=== PATIENT | male | born 1960 | race Caucasian/White ===

== ENCOUNTER 2023-11-30 18:04 | Emergency (ER) | payer OTHER, SELFPAY ==
[2023-11-30 18:05] VITALS: BP 229/109; PULSE 80; RESP 16; TEMP 36.6; O2SAT 100; BMI 24.4
[2023-11-30 18:07] VITALS: BP 217/131; PULSE 81; RESP 18; O2SAT 99
[2023-11-30 19:05] VITALS: BP 183/103; PULSE 75; RESP 18; O2SAT 99
--- NOTE | 2023-11-30 19:08 | EDS_ITS ---
HPI History of Present Illness Chief Complaint: Hypertension Informant: patient and spouse/S.O. Onset/Context/Timing Onset: - (Years) Context: Gradual Onset Timing: Continuous Current Severity: Mild Maximum Severity: Mild Narrative Narrative: 63-year-old [facility] male no primary care physician. He has known he has had high blood pressure for years. He tried to stay on medication. He was trying some [id number] stuff called cardiac shield. His pressures been going up higher. He denies any headache or chest pain. He denies any shortness of breath. Prior similar symptoms: Yes Recent Illness/Hospitalization: No PFSH PFSH Medical History no medical history no medical history Home Medications ?Medication ?Instructions ?Recorded ?Last Taken ?Type lisinopril 20 mg tablet 20 mg PO DAILY #30 tabs 11/30/23 Unknown Rx Allergy/AdvReac Type Severity Reaction Status Date / Time No Known Allergies Allergy Verified 11/30/23 18:05 Social History Smoking Status: Current every day smoker tobacco type: smokeless tobacco ROS ROS ED ROS Narrative Denies recent illness. Denies chest pain. Constitutional Constitutional ED: Denies chills or fever(s) Eyes Eyes: Denies blurry vision ENT ENT ED: Denies ear pain Cardiovascular Cardiovascular: Denies chest pain Respiratory/Chest Respiratory/Chest: Denies cough or dyspnea Gastrointestinal Gastrointestinal: Denies abdominal pain Genitourinary Genitourinary ED: Denies dysuria or hematuria Musculoskeletal Musculoskeletal: Denies arthralgias Integumentary Denies abscess Neurologic Neurologic: Denies headache(s) Psychiatric Psychiatric: Denies anxiety Endocrine Endocrinology: Denies cold intolerance Hematologic/Lymphatic Hematologic/Lymphatic: Reports none Allergic/Immunologic Allergic/Immunologic ED: Denies mouth swelling, tongue swelling or urticaria EXAM Physical Exam Narrative Exam Narrative: Well-appearing 63-year-old male. Vital signs showed elevated blood pressure 229/109 repeated 217/131. He denies any complaints. He is in no acute distress. H EENT exam unremarkable. Neck nontender. Lungs clear to auscultation. Heart regular rhythm no murmur. Chest wall and ribs nontender. Abdomen soft nontender. Moving all 4 extremities. Calves are nontender without edema or cords. Neurologically is awake alert. Answering questions following commands. Normal director of curriculum and instruction strength. Normal dorsi plantarflexion. Normal fingertip to nose. Normal speech. NIH 0. Benign normal exam. Const Vital Signs: 11/30/23 18:05 11/30/23 18:07 11/30/23 18:48 Temperature 98 F Temperature Source Temporal Pulse Rate 80 81 Respiratory Rate 16 18 Respiratory Pattern Normal Blood Pressure 229/109 H 217/131 H Blood Pressure Mean 149 159 Pulse Ox 100 99 Oxygen Delivery Method Room Air Room Air 11/30/23 19:05 11/30/23 20:00 Temperature Temperature Source Pulse Rate 75 73 Respiratory Rate 18 16 Respiratory Pattern Blood Pressure 183/103 H 186/91 H Blood Pressure Mean 129 122 Pulse Ox 99 98 Oxygen Delivery Method Room Air Room Air Positive well nourished and well developed; Negative for obese, cachectic, contractures or unkempt General Appearance ED: well developed and NAD; Negative for unkempt, cachectic, contractures, cyanotic, diaphoretic or pallor Nutritional Appearance: Negative for cachectic or obese HEENT Reports moist mucous membranes Negative for trauma or tenderness Eyes PERRL and EOMs intact bilaterally General Eye ED: Negative for pale conjunctiva or scleral icterus Neck no lymphadenopathy, supple and no JVD General: Negative for tenderness Lymph Lymphatic: Negative for other Chest Wall inspection of chest normal and palpation of chest normal Resp normal respiratory effort and clear to auscultation bilaterally Effort and Inspection: Negative for retractions or pain with movement Auscultation: Negative for rales, rhonchi or wheezes Cardio regular rate, regular rhythm, S1 normal heart sound, S2 normal heart sound and no murmurs Palpation: Negative for palpable S3 or palpable S4 Rate: Negative for bradycardia or tachycardic Rhythm: Negative for abnormal rhythm GI normal to inspection, nondistended, normoactive bowel sounds, non-tender, non- distended and no masses Inspection: Negative for abdominal distention Auscultation: normoactive bowel sounds Palpation: soft; Negative for tender or guarding Back/Spine no CVA tenderness General Back: Negative for CVA tenderness Cervical Spine: Negative for cervical spine tenderness Thoracic Spine / Upper Back: Negative for thoracic spinal tenderness Extremity normal to inspection General Extremety ED: Negative for edema or tenderness General Extremity: Negative for edema Neuro oriented x3 and CN's II-XII intact bilaterally Sensorium / Orientation: alert; Negative for orientation impaired, lethargic or stuporous Motor Exam: strength 5/5 throughout Psych mental status grossly normal Appearance: Negative for unkempt Attitude: No agitated Mood & Affect: Negative for depressed, anxious or tearful Skin no rashes or lesions noted and no wounds General Skin Exam: Negative for jaundice or pallor Lesions: No lesion noted Rashes: No rashes noted MDM MDM MDM Narrative Medical decision making narrative: 63-year-old [place] male with acute on chronic hypertension with no prior medications. Screening labs to be obtained. He is get a benign exam. Most likely he will be started on blood pressure medication and discharged home with a prescription. Also need to follow-up with a primary care physician which she does not have at this time. Repeat exam patient is doing well at 8:30 PM. His most recent blood pressure is 186/91. We discussed that he is excepted to be started on blood pressure medication. He will be given lisinopril 20 mg a day first dose here. Prescription sent to his pharmacy. History & Record Review Discussion w/independent historian: Patient Lab Data Attestation: I reviewed the patient's lab results. Lab results narrative: CBC normal. White count of 7. H&H 14 and 43. Platelets 206. Electrolytes showed sodium 135. Gap 7. Normal BUN and creatinine of 16 and 1. Glucose 123. Labs: Laboratory Results - last 24 hr 11/30/23 18:59 WBC 7.8 RBC 5.20 Hgb 14.3 Hct 43.2 MCV 83.1 MCH 27.5 MCHC 33.1 RDW Std Deviation 38.5 RDW Coeff of Kelly 12.7 Plt Count 206 MPV 9.7 Sodium 135 L Potassium 3.5 Chloride 100 Carbon Dioxide 28.0 Anion Gap 7 BUN 16 Creatinine 1.06 Estim Creat Clear Calc 71.33 Est GFR (MDRD) Af Amer 91 Est GFR (MDRD) Non-Af 75 BUN/Creatinine Ratio 15.1 Glucose 123 H Calcium 10.0 Discharge Plan Triage Chief Complaint: Hypertension ED Provider: Faisal Jimenez Dx/Rx/DC Orders Clinical Impression: Hypertension Instructions: ED High Blood Pressure Hypertension Prescriptions: New lisinopril 20 mg tablet 20 mg PO DAILY Qty: 30 1RF Primary Care Provider: Care Physician,No Primary Referrals: Guicho Coker MD [Med Staff - Regulatory Compliance Manager] - As soon as possible Care Physician,No Primary [Primary Care Provider] - Activity Restrictions/Additional Instructions: Start the blood pressure medication lisinopril. I will take it 1 to 2 hours prior to going to bed at night. Check your blood pressures twice a day for the next week to see how they are going. We do not want them too high or too low. If so we may have to adjust the medication dose. Follow-up with local doctor to be reevaluated. Your labs today were good. Your kidney function was good. Print Language: Kyrgyz Disposition Disposition: Home, Self Care
[2023-11-30 19:11] LABS: Hematocrit 43.2 % (40-54); Hemoglobin 14.3 g/dL (13.0-16.5); Mean Corp Hgb Conc 33.1 g/dL (32-36); Mean Corpuscular Hgb 27.5 pg (27.0-32.0); Mean Corpuscular Volume 83.1 fL (80-94); Mean Platelet Vol. 9.7 fl (6.2-12.0); Platelet Count 206 K/mm3 (150-450); RBC Distribution Width CV 12.7 % (11.6-14.6); RBC Distribution Width SD 38.5 fl (35.1-43.9); White Blood Count 7.8 K/mm3 (4.4-11.0)
[2023-11-30 19:39] LABS: Anion Gap 7 (5-15); BUN 16 mg/dL (7-18); BUN/Creat Ratio 15.1 RATIO (10-20); Chloride 100 mmol/L (98-107); Creatinine, Serum 1.06 mg/dL (0.70-1.30); EST Glomerular Filtration Rate 75 mL/min (>60); Est Glom Filt Rate - Afr Amer 91 mL/min (>60); Estimated Creatinine Clearance 71.33 ml/min; Glucose 123 mg/dL (74-106); Potassium 3.5 mmol/L (3.5-5.1); Sodium Level 135 mmol/L (136-145)
[2023-11-30 20:00] VITALS: BP 186/91; PULSE 73; RESP 16; O2SAT 98
[2023-11-30 20:48] VITALS: BP 155/104; PULSE 64; RESP 18; TEMP 36.7; O2SAT 97
[2023-11-30] MEDS: Lisinopril 20 MG Tablet PO (20:48)
== END 2023-11-30 20:51 | disposition home or self-care (01) ==
PROVIDERS: Emergency Provider Emergency Medicine; Visit Provider Emergency Medicine
DX: I10 Essential (primary) hypertension (principal); F17.220 Nicotine dependence, chewing tobacco, uncomplicated
CPT/HCPCS: 80048; 85027; 99284; J7030; A4216

== ENCOUNTER 2023-12-09 12:56 | Emergency (ER) | payer OTHER, SELFPAY ==
[2023-12-09 12:57] VITALS: BP 215/91; PULSE 78; RESP 16; TEMP 36.4; O2SAT 99; BMI 24.3
--- NOTE | 2023-12-09 13:08 | EDS_ITS ---
HPI History of Present Illness Chief Complaint: Hypertension [facility] Medical History no medical history Home Medications ?Medication ?Instructions ?Recorded ?Last Taken ?Type lisinopril 20 mg tablet 20 mg PO DAILY #30 tabs 11/30/23 Unknown Rx amlodipine 10 mg tablet (Norvasc) 10 mg PO DAILY #30 tabs 12/09/23 Unknown Rx lisinopril 40 mg tablet 40 mg PO DAILY #30 tabs 12/09/23 Unknown Rx Allergy/AdvReac Type Severity Reaction Status Date / Time No Known Allergies Allergy Verified 12/09/23 12:58 Social History Smoking Status: Current every day smoker tobacco type: smokeless tobacco EXAM Physical Exam Const Vital Signs: 12/09/23 12:57 12/09/23 13:55 12/09/23 14:45 Temperature 97.5 F L Temperature Source Temporal Pulse Rate 78 69 Respiratory Rate 16 12 Respiratory Effort Normal Non-Labored Respiratory Pattern Normal Blood Pressure 215/91 H 141/87 H Blood Pressure Mean 132 103 Pulse Ox 99 96 Oxygen Delivery Method Room Air MDM MDM MDM Narrative Medical decision making narrative: HISTORY OF PRESENT ILLNESS: 63-year-old male presents with concern for elevated blood pressure. Notes history of elevated blood pressure. Denies headache, chest pain, leg swelling. Notes compliance with lisinopril which he currently takes 20 mg daily. Notes he took an additional 20 mg this morning. Notes his blood pressures have been uptrending despite increasing blood pressure medicine. REVIEW OF SYSTEMS: Pertinent positives: Elevated blood pressure Pertinent negatives: Headache, shortness of breath, leg swelling PHYSICAL EXAM: Nursing triage notes reviewed, Vital signs reviewed Constitutional: please see mdm HENT: MMM Eyes: Pupils equal round and reactive to light, Extraocular muscles intact Neck: No stridor, no JVD, full neck ROM Lungs: Clear to auscultation, No wheezing or rales. No increased work of breathing, no conversational dyspnea, no accessory muscle use, no nasal flaring. No respiratory distress noted Heart: Regular rate and rhythm, No murmurs, No rubs and No gallops, 2+ distal pulses (radial, femoral, posterior tibial) in all extremities Abdomen: Soft, there is no tenderness, rigidity, rebound or guarding, no obvious peritoneal signs, no palpable pulsatile abdominal masses, no auscultated abdominal bruit : No CVAT Extremities: No edema Neuro: Alert and oriented x3, neuro exam at baseline, cranial nerves II through XII are intact. No pain with extraocular muscle movement. There is negative test of skew. 5 of 5 strength in upper and lower extremities in flexion extension. Intact sensation to light touch in upper and lower extremity dermatomes. No truncal or extremity ataxia. No dysdiadochokinesia. Normal gait. 2+ reflexes in upper and lower extremities. No meningeal signs. Negative Babinski. NIH of 0. Skin: No rash or lesions noted MEDICAL DECISION MAKING: Chief Complaint: Elevated blood pressure External records reviewed: [Medications reviewed: Patient currently lisinopril Factors affecting care: n history of hypertension Social determinants of health: none History obtained from others: Spouse Consults: none [facility] Narrative: Patient was initially hypertensive with a blood pressure 215/91, otherwise afebrile and nontoxic-appearing. No focal neurologic deficits. No stigmata of CHF noted on initial exam. I considered the following differential diagnosis: Endorgan damage from elevated blood pressure (ICH, GLORIA, ACS, heart failure) I obtained a broad lab and imaging workup to further elucidate etiology of patient complaint. I treat the patient oral lisinopril and or Norvasc. ALL IMAGES (IF OBTAINED) HAVE BEEN PERSONALLY REVIEWED AND INTERPRETED BY MYSELF. CBC without leukocytosis, severe anemia, no thrombocytopenia. BMP without evidence of significant electrolyte abnormalities, no anion gap, no acute kidney injury. High-sensitivity troponin is negative, no evidence of myocardial ischemia Chest x-ray did show evidence of a possible pulmonary nodule/hiatal hernia. Discussed incidental finding. Discussed outpatient imaging to further elucidate etiology. No signs of heart failure, cardiomegaly. High-sensitivity troponin is negative, no evidence of myocardial ischemia On reevaluation patient's blood pressure improved to 141/87. Will write Norvasc to take daily as well as increase his lisinopril from 20-40 daily. Have him follow-up with his primary care physician. Will give strict return precautions. The patient and/or family, caregivers express understanding. The patient and/or family, caregivers agrees with the plan. Shared decision making: I will have a discussion with the patient and or visitors regarding risk/benefits of further testing or admission. They will be made aware of of the risk/benefits inherent in this decision they will be given the opportunity to voice understanding. Total critical care time today provided was at least 0] minutes. This excludes separately billable procedures. Critical care time (if documented) is secondary to the patient having high probability of clinically significant/life threatening deterioration in the patient's condition which required my urgent intervention. Impression: 1. Elevated blood pressure Dispo: Discharge This note was generated with Ut[employer] dictation software. It may contain incorrect words, spelling, and punctuation that were not noted in review of the chart prior to signing. Lab Data Labs: Laboratory Results - last 24 hr 12/09/23 13:53 WBC 8.1 RBC 4.89 Hgb 13.4 Hct 39.6 L MCV 81.0 MCH 27.4 MCHC 33.8 RDW Std Deviation 38.5 RDW Coeff of Kelly 13.1 Plt Count 196 MPV 10.0 Immature Gran % (Auto) 0.200 Neut % (Auto) 79.3 H Lymph % (Auto) 12.0 L Charlton % (Auto) 6.2 Eos % (Auto) 1.4 Baso % (Auto) 0.9 Absolute Neuts (auto) 6.4 Absolute Lymphs (auto) 0.97 Nucleated RBC % 0 Sodium 140 Potassium 3.5 Chloride 108 H Carbon Dioxide 25.0 Anion Gap 7 BUN 19 H Creatinine 0.79 Estim Creat Clear Calc 95.71 Est GFR (MDRD) Af Amer 127 Est GFR (MDRD) Non-Af 105 BUN/Creatinine Ratio 24.1 H Glucose 102 Calcium 9.6 Troponin I High Sens 6 Radiography Diagnostic Testing: Clinical Impression(s) from Imaging Studies Chest X-Ray 12/09/23 13:10 IMPRESSION: Hyperinflation. 2.5 cm x 3.7 cm well-defined nodule in the left paraspinal region as described. Correlation with CT scan recommended. Electronically Signed: Teddy Voss MD at 14:10 EDT , Discharge Plan Triage Chief Complaint: Hypertension ED Provider: Vishal Thomas Dx/Rx/DC Orders Instructions: ED Hypertension New Begin Treatment Prescriptions: New lisinopril 40 mg tablet 40 mg PO DAILY Qty: 30 0RF amlodipine [Norvasc] 10 mg tablet 10 mg PO DAILY Qty: 30 0RF No Action lisinopril 20 mg tablet 20 mg PO DAILY Qty: 30 1RF Primary Care Provider: Care Physician,No Primary Referrals: Abhijeet Kelley MD [Med Staff - Active Staff] - Activity Restrictions/Additional Instructions: Thank you for trusting us with your care today! Your blood pressure improved after addition of Norvasc. Your labs and images did not show signs of damage to your vital organs including your brain, heart, kidneys. Please begin taking 40 mg lisinopril daily. Please add to this 10 mg of Norvasc daily. Please return to the emergency department if your symptoms change or worsen. Specifically if you develop headache, chest pain, shortness of breath, loss of movement sensation or coordination, if you lose consciousness, she noticed any changes to urinary habits. Please get regular exercise (30 minutes of walking). Please decrease your salt intake. Please follow with your primary care physician for further outpatient evaluation and management. Print Language: Indonesian Disposition Disposition: Home, Self Care
--- NOTE | 2023-12-09 13:10 | RAD_ITS ---
STUDY: X-RAY CHEST REASON FOR EXAM: Male, 63 years old. Elevated blood pressure TECHNIQUE: Single AP portable view of the chest. COMPARISON: None. FINDINGS: Hyperinflation. There is a 2.5 cm x 3.7 cm nodular density seen in the left paraspinal region medially. This may represent hiatal hernia although a pleural-based nodule cannot be excluded. Correlation with a CT scan is recommended. There is no demonstrated pleural abnormality. Normal size heart. Normal mediastinum and naomi. Normal visualized pulmonary arteries. Normal visualized aortic arch and descending thoracic aorta. Normal visualized thoracic spine. Normal visualized ribs, clavicles, and shoulders. There is no demonstrated abnormality of the visualized soft tissue structures of the upper abdomen. RAD/Chest 1 View (Portable) IMPRESSION: Hyperinflation. 2.5 cm x 3.7 cm well-defined nodule in the left paraspinal region as described. Correlation with CT scan recommended. Electronically Signed: Teddy Voss MD at 14:10 EDT ,
--- NOTE | 2023-12-09 13:10 | EKG12_ITS ---
Test Reason : HIGH BP Blood Pressure : / mmHG Vent. Rate : 077 BPM Atrial Rate : 077 BPM P-R Int : 126 ms QRS Dur : 104 ms QT Int : 384 ms P-R-T Axes : 037 022 034 degrees QTc Int : 434 ms Normal sinus rhythm Normal ECG Confirmed by Shekhar Ross ([id number]), television news video editor LEANDRO DUNCAN ([id number]) on 12/10/2023 2:05:34 PM Referred By: Vishal Thomas Confirmed By:Shekhar Ross
--- NOTE | 2023-12-09 13:29 | NURSING ---
NO OLD EKG
[2023-12-09] MEDS: amLODIPine 10 MG Tablet PO (13:47)
[2023-12-09] MEDS: Lisinopril 40 MG Tablet PO (13:47)
[2023-12-09 14:08] LABS: Absolute Lymphocyte Count 0.97 X10^3/uL (0.83-4.51); Absolute Neutrophil Count 6.4 X10^3/uL (2.0-7.7); Basophil# 0.07 X10^3/uL; Basophil% 0.9 % (0-1); Eosinophil# 0.11 X10^3/uL; Eosinophils% 1.4 % (0-5); Hematocrit 39.6 % (40-54); Hemoglobin 13.4 g/dL (13.0-16.5); Lymphocyte # 0.97 X10^3/ul (0.83-4.51); Mean Corp Hgb Conc 33.8 g/dL (32-36); Mean Corpuscular Hgb 27.4 pg (27.0-32.0); Monocyte% 6.2 % (0-10); NRBC Flagged by Analyzer 0 % (0-5); Neutrophil # 6.44 X10^3/uL (2.7-7.7); Neutrophil % 79.3 % (47-70); Platelet Count 196 K/mm3 (150-450); RBC Distribution Width CV 13.1 % (11.6-14.6); RBC Distribution Width SD 38.5 fl (35.1-43.9); Red Blood Count 4.89 M/mm3 (4.6-6.2); White Blood Count 8.1 K/mm3 (4.4-11.0)
[2023-12-09 14:28] LABS: Anion Gap 7 (5-15); BUN 19 mg/dL (7-18); BUN/Creat Ratio 24.1 RATIO (10-20); Calcium,Total 9.6 mg/dL (8.5-10.1); Chloride 108 mmol/L (98-107); Creatinine, Serum 0.79 mg/dL (0.70-1.30); EST Glomerular Filtration Rate 105 mL/min (>60); Est Glom Filt Rate - Afr Amer 127 mL/min (>60); Estimated Creatinine Clearance 95.71 ml/min; Glucose 102 mg/dL (74-106); Potassium 3.5 mmol/L (3.5-5.1); Sodium Level 140 mmol/L (136-145); Troponin-I HS 6 pg/mL (3.0-78.0)
[2023-12-09 14:45] VITALS: BP 141/87; PULSE 69; RESP 12; O2SAT 96
[2023-12-09 15:25] VITALS: BP 148/93; PULSE 81; RESP 19; TEMP 36.9; O2SAT 97
== END 2023-12-09 15:45 | disposition home or self-care (01) ==
PROVIDERS: Emergency Provider Emergency Medicine; Referring Provider Emergency Medicine; Visit Provider Emergency Medicine
DX: I10 Essential (primary) hypertension (principal); F17.220 Nicotine dependence, chewing tobacco, uncomplicated; Z79.899 Other long term (current) drug therapy
CPT/HCPCS: 71045; 80048; 84484; 85025; 93005; 99283; A4216

== ENCOUNTER → 2024-01-08 | Outpatient (CLI) | payer SELFPAY, OTHER ==
--- NOTE | 2024-01-08 08:25 | CT_ITS ---
ACR Level 3 findings have been noted. An addendum which confirms receipt of the report will follow. STUDY: CT CHEST WITHOUT CONTRAST REASON FOR EXAM: Male, 63 years old. Solitary pulmonary nodule RADIATION DOSAGE (If Supplied By Facility): CTDIvol = ( 8.32 ) mGy, DLP = ( 345.20 ) mGycm TECHNIQUE: Transaxial imaging was performed without the administration of intravenous contrast material. Individualized dose optimization techniques were used for this CT. COMPARISON: Chest x-ray dated December 09, 2023. FINDINGS: Partially calcified 6 mm granuloma seen in the posterior lateral aspect of the right middle lobe, see soft tissue windows were clear calcification in the nodule on image 96/147 series 2. No additional nodules are present in either lung. No consolidation or pulmonary edema or pleural effusion is seen. The lungs are otherwise clear. There is hyperinflation of the lungs consistent with chronic obstructive lung disease (COPD). There is no demonstrated pleural abnormality. Normal heart and pericardium. There are calcifications of the coronary arteries. Normal mediastinum. Small calcified right hilar lymph node noted. Normal unenhanced pulmonary arteries. There is atherosclerotic calcification of the aortic arch with tortuosity and elongation of the aortic arch and descending thoracic aorta. There are multi-level degenerative changes of the thoracic spine. Included upper abdomen: There is a 3.56 cm posterior exophytic mass arising from the midpole of the left kidney concerning for malignant neoplasm that should be evaluated with CT of abdomen and pelvis with and without intravenous contrast. The remaining visualized upper abdominal structures are unremarkable. Several small simple cysts are seen throughout the liver with benign features. Small 5.32 cm fat-containing left lower lobe paravertebral diaphragmatic hernia noted CT/Chest without Contrast IMPRESSION: 1. There is a 3.56 cm posterior exophytic mass arising from the midpole of the left kidney concerning for malignant neoplasm that should be evaluated with CT of abdomen and pelvis with and without intravenous contrast. 2. CHEST: Benign partially calcified right middle lobe granuloma. COPD. 3. Risk factors for lung malignancy with COPD and emphysema. Considering Primo in the CT LUNG CANCER annual screening exam. Electronically Signed: Zion Mckeon MD at 10:36 EDT ,
== END | disposition home or self-care (01) ==
LOC: CT 08:17
PROVIDERS: Referring Provider Nurse Practitioner Family; Visit Provider Nurse Practitioner Family
DX: R91.1 Solitary pulmonary nodule (principal); R93.89 Abnormal findings on diagnostic imaging of other specified body structures
CPT/HCPCS: 71250

== ENCOUNTER → 2024-01-29 | Outpatient (CLI) | payer SELFPAY, OTHER ==
--- NOTE | 2024-01-29 16:51 | CT_ITS ---
INDICATION: ABNORMAL CT CHEST LEFT KIDNEY MASS EXAMINATION: CT ABDOMEN AND PELVIS WITH AND WITHOUT CONTRAST - CT Abdomen And Pelvis WO/W Contrast Injection TECHNIQUE: Helically acquired images were obtained of the abdomen and pelvis both before and after IV contrast. A radiation dose optimization technique was used for this scan. IV Contrast dosage and agent: 75 cc Isovue-300 Oral contrast: None. COMPARISON: Chest CT 01/08/2024 FINDINGS: LOWER CHEST: Stable 6 mm calcified granuloma right middle lobe. No acute pulmonary findings. No cardiomegaly or pericardial effusion. LIVER: Scattered hepatic cysts. No concerning focal mass. GALLBLADDER AND BILIARY TREE: No calcified gallstones. No gallbladder distension or wall edema. No intra- or extrahepatic biliary ductal dilation. PANCREAS: No focal cystic or solid mass. SPLEEN: Normal size without focal cystic or solid mass. ADRENAL GLANDS: No nodules. KIDNEYS AND URETERS: 4 cm exophytic lesion lateral cortex left lower pole with 17 Hounsfield unit postcontrast enhancement. No hydronephrosis. PERITONEUM: No ascites or free air. BOWEL: Normal appendix. No stomach or bowel distension. No focal inflammatory change. LYMPH NODES: No enlarged mesenteric or retroperitoneal lymph nodes. VESSELS: Aorta is non-dilated. URINARY BLADDER: Unremarkable. REPRODUCTIVE ORGANS: No pelvic masses. ABDOMINAL WALL: Small fat-containing umbilical hernia. BONES: No acute or aggressive abnormality. CT/CT Abd/Pelvis W/WO Contrast IMPRESSION: Equivocal enhancement of the left lower pole exophytic renal mass. Recommend follow-up multiphasic renal MRI for possible malignancy. Electronically Signed: Adebayo Babin MD at 16:11 EDT ,
[2024-01-29 17:17] LABS: CREATININE FINGERSTICK 1.1 mg/dL (0.70-1.30); EGFR FINGERSTICK > 60.0000 mL/min (>60)
== END | disposition home or self-care (01) ==
LOC: CT 16:50
PROVIDERS: Referring Provider Nurse Practitioner Family; Visit Provider Nurse Practitioner Family
DX: N28.89 Other specified disorders of kidney and ureter (principal)
CPT/HCPCS: 74178; Q9967

== ENCOUNTER → 2024-05-30 | Outpatient (CLI) | payer SELFPAY, OTHER ==
--- NOTE | 2024-05-30 15:54 | MRI_ITS ---
PROCEDURE: MRI of the abdomen without and with intravenous contrast. REASON FOR EXAM: Left renal mass. TECHNIQUE: Multi planer, multisequence MRI images of the abdomen were obtained without and with intravenous contrast. 14 cc Dotarem IV contrast was administered. COMPARISON: CT abdomen/pelvis 01/29/2024 FINDINGS: The included osseous structures of the lumbar spine, lower thorax, and upper pelvis unremarkable. Patchy wall thickening of the stomach may be due to lack of distention versus peristalsis. The included bowel segments show no specific abnormality. No upper abdominal ascites or adenopathy. The included upper bowel segments are unremarkable. Abdominal aorta normal in caliber. There are a few partially included nonenhancing cysts in the liver, measuring up to 1.5 cm. No filling defects in the gallbladder. No abnormal dilation of the biliary tree. Included portions of the spleen, adrenal glands, and pancreas show no specific abnormality. The kidneys are symmetric in size. No discrete cortical lesion of the right kidney. No evidence of obstructive uropathy. There is a partially exophytic mildly T2 hypointense lesion inferior lateral left kidney, measuring 3.8 cm craniocaudad. This does appear to demonstrate some enhancing on postcontrast images, with average central region of interest intensity value on precontrast images of 447, compared to 750 on the postcontrast images. On the delayed CT images, the mass has a central average Hounsfield unit value of 36, compared to 15 on the precontrast images. MRI/MRI Abd WITH and W/O Contrast IMPRESSION: There does appear to be some enhancement of the exophytic 3.8 cm mass of the in ferior lateral left kidney. Renal neoplasm would be a differential diagnostic consideration and biopsy is recommended for defini tive histologic diagnosis. No upper abdominal ascites or adenopathy. There are some scattered nonenhancing small hepatic cysts, measuring up to 1.5 cm. The right kidney and remaining solid organs of the abdomen are unremarkable. T here are Reading Location: [facility]
--- NOTE | 2024-05-30 16:15 | RAD_ITS ---
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 COMPARISON: None. FINDINGS: No evidence of displaced orbit fracture. No radiopaque foreign body. Visualized paranasal sinuses appear clear. RAD/Orbits for Foreign Body IMPRESSION: No radiopaque foreign body in the orbits. Reading Location: BLANK
[2024-05-30 17:24] LABS: CREATININE FINGERSTICK < 1.0 mg/dL (0.70-1.30); EGFR FINGERSTICK > 60.0000 mL/min (>60)
== END | disposition home or self-care (01) ==
PROVIDERS: Referring Provider Urology; Visit Provider Urology
DX: D41.00 Neoplasm of uncertain behavior of unspecified kidney (principal)
CPT/HCPCS: 70030; 74183; A9575

== ENCOUNTER 2024-07-08 11:00 | Observation (INO) | payer SELFPAY, OTHER ==
[2024-07-08] VITALS (13 sets, daily range): BP systolic 85–137; BP diastolic 51–78; PULSE 53–75; RESP 16; TEMP 36.3–37; O2SAT 95–100; BMI 24.0; BMI 24.1
[2024-07-08] MEDS: 0.9% Normal Saline (1000mL) 1,000 ML 15 ML IV (06:47)
--- NOTE | 2024-07-08 07:06 | PRE.ANES_ITS ---
ASA Classification* ASA Classification ASA Classification: 2 Assessment & Plan Anesthesia* Anesthesia Assessment Anesthesia Assessment: Discussed sedation and/or anesthesia options, risks, benefits, and alternatives with patient/parents/legal guardian/POA. Questions invited. The patient/parents/legal guardian/POA seems to understand and agrees to proceed with anesthesia plan. Reviewed the physical assessment, medical history, allergy history and patient home medications list prior to surgery/procedure/anesthetic and documented any changes. Performed airway and anesthesia risk assessments. Anesthesia Type Anesthesia Type: General Anesthesia Focused Assessment* Temperature: 97.6 F Pulse Rate: 61 Blood Pressure: 112/78 Respiratory Rate: 16 Pulse Ox: 100 Airway Assessment Mouth opens: >3 cm Mallampati Score: II Focused Labs Anesthesia Preop lab: CBC WBC 8.1 K/mm3 (4.4-11.0) 12/09/23 13:53 12/09/23 RBC 4.89 M/mm3 (4.6-6.2) 12/09/23 13:53 12/09/23 Hgb 13.4 g/dL (13.0-16.5) 12/09/23 13:53 12/09/23 Hct 39.6 % (40-54) L 12/09/23 13:53 12/09/23 Plt Count 196 K/mm3 (150-450) 12/09/23 13:53 12/09/23 CHEMISTRY Potassium 3.5 mmol/L (3.5-5.1) 12/09/23 13:53 12/09/23 Sodium 140 mmol/L (136-145) 12/09/23 13:53 12/09/23 BUN 19 mg/dL (7-18) H 12/09/23 13:53 12/09/23 Creatinine 0.79 mg/dL (0.70-1.30) 12/09/23 13:53 12/09/23 Glucose 102 mg/dL (74-106) 12/09/23 13:53 12/09/23 COAG Pre-Assessment Diagnosis/Proposed Procedure Planned Operative Procedure(s): LAP ROBOTIC PARTIAL NEPHRECTOMY Anesthesia History 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 When Was Last Pacemaker Check QUESTION #4 FULL TEXT: You/Your Family Experience fever (hyperthermia) with Anesthesia Last Oral Intake Last Oral intake: Last Oral Intake NPO since 20:00 07/08/24 06:28 Meds taken in AM with sips of No 07/08/24 06:28 water? Meds patient instructed to take am of surgery PONV PONV - wood grinder operator: PONV - wood grinder operator Female No 06/24/24 10:54 HX of Motion Sickness No 06/24/24 10:54 HX of N/V After Surgery No 06/24/24 10:54 Non-Smoker No 06/24/24 10:54 Duration of Surgery greater Yes 06/24/24 10:54 than 60 minutes Number of Risk Factors 1 06/24/24 10:54 PONV Score Low Risk 06/24/24 10:54 Height & Weight Height & Weight: Anesthesia: Height & Weight Height 5 ft 9 in 07/08/24 06:28 Weight: 73.8 kg 07/08/24 06:28 Body Mass Index (BMI) 24.0 07/08/24 06:28 Respiratory Assessment Respiratory Assessment - wood grinder operator: Respiratory Tract Infection Hx - wood grinder operator Hx Respiratory Tract Infection No 06/24/24 10:54 STOP Sleep Apnea STOP Sleep Apnea - wood grinder operator: STOP Sleep Apnea - wood grinder operator Hx Hypertension Yes: CONTROLLED WITH MEDS 06/24/24 10:54 Hx Sleep Apnea No 06/24/24 10:54 CPAP BIPAP Do you snore loudly (louder Yes 06/24/24 10:54 than talking or can be heard Do you often feel tired/ No 06/24/24 10:54 fatigued/ sleepy during daytime? Has anyone observed you stop No 06/24/24 10:54 breathing during sleep? STOP Results Positive 06/24/24 10:54 QUESTION #5 FULL TEXT : Do you snore loudly (louder than talking or can be heard through closed doors)? 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 Specify any problems Hx of Preganancy in last 3 N/A 06/24/24 10:54 Months Nurse Filling Out Transfusion DSCHRIBER 06/24/24 10:54 & Questions: Date: 06/24/24 06/24/24 10:54 Time: 10:56 06/24/24 10:54 Patient unable to answer at this time (ie. confused, unrespo /Reproduction History /Reproductive History - wood grinder operator: /Reproductive Hx- wood grinder operator Hx Now No 06/24/24 10:54 Gestational Age (in weeks): EDC: Hx Hx Para Hx Section SAB No 06/24/24 10:54 Active Medications Active Medications: Current Medications Generic Name Dose Route Start Last Admin Trade Name Freq PRN Reason Stop Dose Admin Cefazolin Sodium 2 gm/ N/A 20 mls @ 400 mls/hr 07/08/24 07:30 IV 07/08/24 07:32 PREOP ONE Sodium Chloride 1,000 mls @ 15 mls/hr 07/08/24 06:25 07/08/24 06:47 IV 15 mls/hr .Q48H YOANNA Administration PFSH Medical History Wears glasses Alcohol use Dry skin dermatitis Arthritis History of hiatal hernia History of renal disease Low iron Heartburn Smoker Hypertension Home Medications ?Medication ?Instructions ?Recorded ?Last Taken ?Type amlodipine 10 mg tablet (Norvasc) 10 mg PO QHS 5 07/07/24 History lisinopril 40 mg tablet 40 mg PO QHS 06/24/24 History Allergy/AdvReac Type Severity Reaction Status Date / Time No Known Allergies Allergy Verified 07/08/24 06:27 Surgical History Hx of inguinal hernia repair Social History Smoking Status: Current every day smoker tobacco type: smokeless tobacco Review of Systems (Anesthesia) ROS Narrative System reviewed and no additional complaints, except as documented.
--- NOTE | 2024-07-08 08:00 | KID_PTH ---
PATIENT: DINO PROTILLO LOC: MS3 U#:[id number] AGE/SX: 64/M ROOM: [facility] [place] [place]07/08/[address]: Dr. Jesus Christian MD : 1960 BED: 1 DIS: 07/10/2024 SPEC #: [id number] RECD: 07/08/24 13:36 STATUS: YOHAN YEEYassine #: [id number] KIESHA: 07/08/24 08:[address]: Jesus Christian DEPT: SURGICAL PATHOLOGY RECD BY: Zeus Guzman ENTERED: 07/08/24 13:37 SP TYPE: KIDNEY OTHR DR: Ivone Meadows, ASSET PROTECTION REPRESENTATIVE-C Tissues: A - Kidney, NOS Procedures: Surgery Specimen Level V HEADER OPERATION: Laparoscopic robotic partial nephrectomy PRE-OP DIAGNOSIS: Neoplasm of uncertain behavior of left kidney TISSUE SUBMITTED: A- Left renal mass with disrupted capsule MICROSCOPIC DIAGNOSIS A. LEFT KIDNEY, MASS, PARTIAL NEPHRECTOMY:- PAPILLARY RENAL CELL CARCINOMA, pT1a (see synoptic report in Comment section) * WHO/ISUP GRADE 1 * Tumor size: 3.7 cm * Tumor is limited to kidney * Negative for sarcomatoid / rhabdoid features and necrosis * Negative for vascular and lymphovascular invasion * All margins are negative for tumor - see Note. Note: Tumor is present at the edge of the specimen where the capsule was surgically disrupted. This is not a true margin. COMMENT SYNOPTIC REPORT FOR RENAL CARCINOMA OF THE KIDNEY: Nephrectomy type (p=partial, t=total):?P Laterality (r=right, l=left): L Focality (u=unifocal, m=multifocal):?U Tumor size (cm):?3.7 Histologic type:?PAPILLARY RENAL CELL CARCINOMA Tumor grade (1-4):?1 % sarcomatoid:?0 % rhabdoid:?0 % coagulative necrosis:?0 Lymphovascular invasion (n=no, y=yes):?N ? Tumor extent (n=no, y=yes, na=not applicable): ??? Renal sinus fat invasion:?NA ??? Perinephric fat invasion:?N ??? Pelvicalyceal invasion:?NA ??? Renal vein/branch invasion:?NA ??? Vena cava thrombus below diaphragm:?NA ??? Vena cava thrombus above diaphragm:?NA ??? Invasion of vena cava wall:?NA ??? Direct invasion of adrenal gland:?NA ??? Non-contiguous adrenal invasion:?NA ??? Beyond Gerota's fascia/in non-adrenal organs:?NA ? Margins (n=negative, p=positive, na=not applicable):?N ??? Location positive margin:?NA ? Regional lymph nodes (na=not applicable): ??? Number examined:?NA ??? Number positive:?NA ? Non-neoplastic kidney:? Additional findings:?NONE pTNM:?pT1a NX Comments: NONE ? Pathologic Staging Definitions (pTNM): Primary Tumor (pT) pTX:? Primary tumor cannot be assessed pT0:? No evidence of primary tumor pT1a:?? Tumor </= 4 cm, limited to the kidney pT1b:?? Tumor > 4 cm and </= 7 cm, limited to the kidney pT2a:?? Tumor > 7 cm and </= 10 cm, limited to the kidney pT2b:?? Tumor > 10 cm, limited to the kidney pT3a:?? Tumor invades renal vein/branches, perirenal fat, renal sinus fat (adipose/soft tissue/small vessels) or pelvicalyceal system pT3b:?? Tumor extends into vena cava below the diaphragm pT3c:?? Tumor extends into vena cava above the diaphragm or invades vena cava wall pT4:? Tumor invades beyond Gerota's fascia including direct extension to adrenal gland ? MICROSCOPIC DESCRIPTION Slides are reviewed. GROSS DESCRIPTION Received in formalin labeled, Dino Portillo, and designated left renal mass with disrupted capsule is a partial kidney consisting primarily of a yellow-pillai, well-defined, mass with a strip of overlying adipose tissue. Specimen weighs 32 g and measures 5.6 x 3.7 x 3.2 cm. The outer capsule is intact and is entirely inked blue. The parenchymal margin shows an area of disruption showing protruding friable tumor. The edge of the margin adjacent to the disruption is inked green. and the remainder of the parenchymal margin is inked black. Sectioning shows a yellow, softened, friable renal mass that measures 3.7 x 3.5 x 3.1 cm. The outer surface of the mass is confined to the capsule with no extension through to the adipose tissue. The parenchymal surface of the specimen does show the afore mentioned disruption with protruding tumor, however the mass is otherwise focally less than 0.1 cm from the black inked marginal surface. The remainder of the margin shows a thin strip of pillai-brown unremarkable parenchyma. Kiln Furniture Saw Tender sections are submitted as follows:Cassette Summary:A1-two business representative perpendicular sections of one end of the specimenA2-one business representative cross-section at area of disrupted tumor [id number] business representative cross-section bisected including area of disrupted tumor [id number] cross-section bisectedA7-two additional sections of tumor at parenchymal marginA8-one business representative perpendicular section of the opposing end of the specimen ANTONIA 07/08/2024 CPT:17075
[2024-07-08 08:13] LABS: Absolute Lymphocyte Count 0.94 X10^3/uL (0.83-4.51); Absolute Neutrophil Count 4.5 X10^3/uL (2.0-7.7); Basophil# 0.05 X10^3/uL; Basophil% 0.8 % (0-1); Eosinophil# 0.18 X10^3/uL; Hematocrit 38.1 % (40-54); Hemoglobin 13.1 g/dL (13.0-16.5); Lymphocyte # 0.94 X10^3/ul (0.83-4.51); Lymphocyte % 15.4 % (19-41); Mean Corp Hgb Conc 34.4 g/dL (32-36); Mean Corpuscular Hgb 28.3 pg (27.0-32.0); Mean Corpuscular Volume 82.3 fL (80-94); Mean Platelet Vol. 9.4 fl (6.2-12.0); Monocyte# 0.38 X10^3/uL; Monocyte% 6.2 % (0-10); NRBC Flagged by Analyzer 0 % (0-5); Neutrophil # 4.53 X10^3/uL (2.7-7.7); Neutrophil % 74.3 % (47-70); Platelet Count 210 K/mm3 (150-450); RBC Distribution Width CV 13.2 % (11.6-14.6); RBC Distribution Width SD 39.8 fl (35.1-43.9); Red Blood Count 4.63 M/mm3 (4.6-6.2); White Blood Count 6.1 K/mm3 (4.4-11.0)
[2024-07-08] MEDS: Cefazolin 2 GM in Syringe IV (08:25)
[2024-07-08] MEDS: Bupivacaine Mpf 0.5% 30 ML VIAL (10:37)
--- NOTE | 2024-07-08 10:41 | HP.PCM_ITS ---
HPI - General General Date of Service: 07/08/24 Chief Complaint: Left renal mass HPI Narrative LUNA PORTILLO, is a 64 M who presents resection of a large left renal mass robotically [facility] Medical History Wears glasses Alcohol use Dry skin dermatitis Arthritis History of hiatal hernia History of renal disease Low iron Heartburn Smoker Hypertension Home Medications ?Medication ?Instructions ?Recorded ?Last Taken ?Type amlodipine 10 mg tablet (Norvasc) 10 mg PO QHS 5 07/07/24 History lisinopril 40 mg tablet 40 mg PO QHS 06/24/24 History docusate sodium 100 mg capsule 100 mg PO BID #20 caps 07/08/24 Unknown Rx (Colace) oxycodone 5 mg tablet 5 mg PO Q6H PRN pain 3 days #14 07/08/24 Unknown Rx tabs Allergy/AdvReac Type Severity Reaction Status Date / Time No Known Allergies Allergy Verified 07/08/24 06:27 Surgical History Hx of inguinal hernia repair Social History Smoking Status: Current every day smoker tobacco type: smokeless tobacco Vital Signs Vital Signs Vital Signs: 07/08/24 06:28 07/08/24 06:28 07/08/24 07:06 Temperature 97.6 F L 97.6 F L Temperature Source Temporal Pulse Rate 61 61 Respiratory Rate 16 16 Respiratory Pattern Normal Blood Pressure 112/78 112/78 Blood Pressure Mean 89 Blood Pressure Source Monitor Blood Pressure Position Sitting Blood Pressure Location Right Arm Pulse Ox 100 100 Oxygen Delivery Method Room Air Weight Weight: 73.8 kg Body Mass Index (BMI) 24.0 Results Lab / Micro Data 07/08/24 08:07 Labs: Laboratory Results - last 24 hr 07/08/24 08:07: WBC 6.1, RBC 4.63, Hgb 13.1, Hct 38.1 L, MCV 82.3, MCH 28.3, MCHC 34.4, RDW Std Deviation 39.8, RDW Coeff of Kelly 13.2, Plt Count 210, MPV 9.4, Immature Gran % (Auto) 0.300, Neut % (Auto) 74.3 H, Lymph % (Auto) 15.4 L, [place] % (Auto) 6.2, Eos % (Auto) 3.0, Baso % (Auto) 0.8, Absolute Neuts (auto) 4.5, Absolute Lymphs (auto) 0.94, Nucleated RBC % 0
--- NOTE | 2024-07-08 10:42 | PCM.DC ---
Discharge Instructions Diet Discharge Diet: No restrictions DC O2, CPAP, BIPAP needs Home O2 Discharge instructions: No Dressing / Incision Discharge Activity: May Not Drive (while taking narcotic pain medications.) Return to work on:: 08/19/24 May shower in (days): 1 Weight Bearing Status: Weight bearing as tolerated Additional Activity Instructions:: No lifting for 6 weeks Dressing / Incision Call your doctor if you observe: Fever of 101 or Higher and Uncontrolled pain Suture Line Care: Avoid Pulling/Pushing and Avoid Pinching/Bending Follow Up Care Please Follow Up With: Jesus Christian MD When: Call [phone] for an appointment Test Results: Test results from this visit will be discussed in further detail at your follow-up appointment, if applicable. Discharge Plan Admission Primary Reason for Your Visit: kidney mass, kidney cancer Attending Provider: Jesus Christian Primary Care Provider: Ivone Meadows CARGO TANK MECHANIC Instructions Print Language: Andorran Discharge Orders/Prescriptions Prescriptions: New oxycodone 5 mg tablet 5 mg PO Q6H PRN (Reason: pain) 3 Days Qty: 14 0RF docusate sodium [Colace] 100 mg capsule 100 mg PO BID Qty: 20 0RF Continued amlodipine [Norvasc] 10 mg tablet 10 mg PO QHS lisinopril 40 mg tablet 40 mg PO QHS Other Ambulatory Orders: CBC-Complete Blood Cnt No Diff (Routine) Timeframe: [id number] Facility: [facility] - Location: Laboratory Ordered By: Dr. Keaton Moffett Referrals / Follow Up: Jesus Christian MD [Med Staff - Active Staff] - Care Physician,No Primary [Non-Staff] - Disposition Disposition (needs filled in before D/C Order can be placed): Home, Self Care
--- NOTE | 2024-07-08 10:42 | PCM.OPRPT ---
Operative Report (Standard) Operative Information Date of Procedure: 07/08/24 Pre-Operative Diagnosis: Left renal mass Post-Operative Diagnosis: The same Surgery/Procedure Performed: Laparoscopic robotic assisted left partial nephrectomy physician practice coordinator: Yes Kennel Technician: Emilia Núñez Tasks completed by service center assistant: Opening, Closing, Opening & closing, Harvesting grafts, Dissecting tissue, Removing tissue, Implanting device, Altering tissue, Insert Trochanter, Hemostasis: Clamp, Hemostasis: Tie, Hemostasis: Electrocautery, Trocar, Retracting and Other Type of Anesthesia: General RN Documented Start/Stop Times: Operation Date: 07/08/24 08:00 Case Time Into Pre-Op 07/08/24 06:09 Out of Pre-Op 07/08/24 08:07 Anesthesia Start 07/08/24 08:11 Into Room 07/08/24 08:11 Procedure Start 07/08/24 08:49 Procedure Start Time: 08:11 Procedure Stop Time: 10:43 Select all DRAINS/GRAFTS/IMPLANTS that apply: Drains Drain details: Savage catheter Estimated Blood Loss: 300 cc Specimen collected: Yes Description of specimen(s) removed: Left renal mass Description of surgery: Patient presented to [facility] for a laparoscopic robotic assisted left partial nephrectomy. We talked about the options of management for the patient's renal mass. The patient had a renal mass. We discussed with the patient that there is always a possible metastatic disease development after this procedure and the patient understands that more treatments such as chemotherapy or oral chemotherapy may be necessary for further development of metastatic disease which may not be curable. We discussed the risks of the procedure including the risk of general anesthetic, bleeding, infection, blood transfusion, formation of hernias, recurrence of cancer in the local area, development of lymphoceles, chylous ascites, and lymph fluid collection in the renal bed. After full discussion with the patient, the patient was marked, and the patient was taken back to the operating room. Patient was taken back to the operating room was placed for supine on the table and underwent general endotracheal intubation. A Savage catheter was placed into the bladder. The patient side was recognized and marked. A timeout procedure was performed. I identified the patient the side of the surgery and the surgery that was planned to be performed. Once the patient was under general anesthetic then the patient was placed in modified lateral flank position on the patient and I had the patient's. I then infiltrated the skin with 1/2 percent Marcaine and a small incision in the skin and use a Veress needle to introduce the Veress needle into the peritoneal cavity and filled the peritoneal cavity with CO2 gas. I then placed the camera trocar under direct visualization. I then placed a right arm robotic trocar. Then if necessary scissors were used to dissect any adhesions. And then the left arm trocar was placed and a fourth robotic trocar was placed. After the trocars were placed I placed an air seal port between the #1 arm and the camera for the public health training assistant to use during the case. Then the robot was docked and I placed scissors and prograsp and the robotic arms and proceeded first by incising the white line of Toldt and reflecting the colon off the kidney I started superiorly above the kidney reflecting the spleen of the kidney and worked all the way inferiorly after the colon was completely reflected off the kidneys fascia was grabbed and elevated and we started reflecting the mesentery of the colon off the kidney, First the Gerota fascia was incised over the area of the renal mass and then dissected down to the capsule of the kidney and then reflected the fat off the kidney all the way superiorly until I was able to get all the fat off the kidney surrounding the mass. Then we used endoscopic ultrasound an ultrasound probe was dropped into the patient's abdomen using the ProGrasp I then carefully did ultrasonography of the kidney to identify the renal mass. Once the mass was identified then I circumferentially scored around the mass edges making sure the edges were there rescored were clear of any tumor inferior to the ultrasound. Then once the tumor was identified the ultrasound confirmed the location and all the edges of the tumor were scored on the parenchyma, Time was marked. Then we went for the dissection of the tumor using sharp dissection left and electrocautery dissection I dissected deep into the parenchyma underneath the tumor major with a wide dissection and then came underneath the tumor reflecting the tumor off the kidney as we went underneath the tumor and on the other side of the dissection. Once the tumor was removed in its entirety then the tumor was placed in an Endo Catch bag. We then used extensive cauterization to cauterize the base of resection site and then I ran the base of the resection site with a V-Loc stitch and also closed any potential opening into the collecting system while this was done. Then at this point then we closed the kidney over itself using 0 Vicryl stitch in a running fashion using interrupted clips to allow compression of the parenchyma together as we ran the suture from end and then we placed a clip and we would perform a renophary repair of the kidney pulling the edges together using the large clips. Once this was completed then the whole defect was closed then at this point time was marked and we removed and unclipped the bulldogs from the artery there was good perfusion of the kidney and we checked the excision site and there was no bleeding from the excision site. The tumor was then also placed in an Endo Catch bag immediately. We then positioned the kidney back up in the lateral side making sure that it was properly secured and then we extracted the tumor through the extraction site. The extraction site was then closed primarily we went back inside the abdomen after 10 minutes of extraction to check for any bleeding and there was no bleeding from the kidney. We all the sponges and needles were accounted for. We then undocked the robot we removed all the ports under direct visualization and then we closed any ports that were 10 to 12 mm in size. We then closed all the subcuticular incisions with stitches patient's anesthetic is currently being reversed and he is being taken back to the PACU in good condition. Surgical Findings: Renal mass resected completely Complications Complications: No Admit VTE Documentation VTE Present on Admission: No VTE Mechan Device Prophylaxis: SCD's VTE Pharm Prophylaxis ordered?: No
--- NOTE | 2024-07-08 11:00 | PCM.POST.ANE ---
Anesthesia: Postop Eval I Current Vital Signs Temperature: 97.6 F Pulse Rate: 61 Blood Pressure: 112/78 Respiratory Rate: 16 Pulse Ox: 100 Oxygen Delivery Method: Room Air Assessment Airway patent: Yes Spontaneous unlabored respirations: Yes Mental status: Awake nausea: No Vomiting: No Anesthesia Complication: No Fluid Hydration Crystalloid volume administer (ml): 400 Total IV fluid infused: 400 Progress Note Anesthesia document: Postop Eval 1 completed: Yes
--- NOTE | 2024-07-08 11:02 | PCM.POSTANE2 ---
Anesthesia Postop Eval I Sum Anesthesia Postop Eval I Summary Anesthesia Postop Eval I Summary: Anesthesia Postop Eval I: Assessment Summary Airway patent Spontaneous unlabored respirations Mental status nausea Vomiting Anesthesia Postop Eval I: Fluid Summary Crystalloid volume administer (ml) Colloids volume administered ( ml) Blood Product volume administered (ml) Total IV fluid infused Anesthesia Postop Eval I: Summary Notes Anesthesia Complication Anesthesia Complication Comment: Post-operative progress note Anesthesia: Postop Eval II Evaluation Mental status: Awake Pain Level: 0 nausea: No Vomiting: No Complications Anesthesia Complication: No
[2024-07-08] MEDS: Lactated Ringers 1,000 ML 15 ML IV (11:31)
[2024-07-08] MEDS: 0.9% Normal Saline (1000mL) 1,000 ML 125 ML IV ×2 (12:35→20:33)
[2024-07-08] MEDS: Morphine 2 MG/ML Syringe IV (15:42)
[2024-07-08] MEDS: 0.9% Saline Lock 10 ML Syringe IV (15:43)
[2024-07-08] MEDS: oxyCODONE 5 MG Tablet PO (19:03)
[2024-07-08] MEDS: Acetaminophen 325 MG Tablet 650 MG PO (19:03)
[2024-07-08] MEDS: amLODIPine 10 MG Tablet PO (22:47)
[2024-07-08] MEDS: Docusate Sodium 100 MG Capsule 200 MG PO (22:47)
[2024-07-08] MEDS: Lisinopril 40 MG Tablet PO (22:47)
[2024-07-09 00:21] VITALS: BP 113/73; PULSE 66; RESP 16; TEMP 36.9; O2SAT 96; BMI 24.1
[2024-07-09 04:13] VITALS: BMI 24.1
[2024-07-09 04:32] VITALS: BP 121/68; PULSE 72; RESP 16; TEMP 37.2; O2SAT 94
[2024-07-09] MEDS: 0.9% Normal Saline (1000mL) 1,000 ML 125 ML IV (04:41)
[2024-07-09] MEDS: Acetaminophen 325 MG Tablet 650 MG PO ×3 (04:48→21:24)
[2024-07-09] MEDS: Ketorolac 15 MG/ML Vial IV ×2 (04:48→14:07)
[2024-07-09 07:17] LABS: Absolute Lymphocyte Count 0.98 X10^3/uL (0.83-4.51); Basophil# 0.02 X10^3/uL; Basophil% 0.1 % (0-1); Hematocrit 34.1 % (40-54); Hemoglobin 11.4 g/dL (13.0-16.5); Lymphocyte # 0.98 X10^3/ul (0.83-4.51); Lymphocyte % 4.9 % (19-41); Mean Corp Hgb Conc 33.4 g/dL (32-36); Mean Corpuscular Volume 83.8 fL (80-94); Mean Platelet Vol. 9.8 fl (6.2-12.0); Monocyte% 5.4 % (0-10); NRBC Flagged by Analyzer 0 % (0-5); Neutrophil # 17.97 X10^3/uL (2.7-7.7); Platelet Count 198 K/mm3 (150-450); RBC Distribution Width CV 13.6 % (11.6-14.6); RBC Distribution Width SD 41.8 fl (35.1-43.9); Red Blood Count 4.07 M/mm3 (4.6-6.2); White Blood Count 20.2 K/mm3 (4.4-11.0)
[2024-07-09 08:19] LABS: Anion Gap 12 (5-15); BUN 12 mg/dL (4-19); BUN/Creat Ratio 12.6 RATIO (10-20); Calcium,Total 9.1 mg/dL (7.6-11.0); Carbon Dioxide 17.7 mmol/L (21.0-32.0); Chloride 109 mmol/L (98-108); Creatinine, Serum 0.94 mg/dL (0.70-1.20); EST Glomerular Filtration Rate 90 (>60); Estimated Creatinine Clearance 76.81 ml/min (50-250); Glucose 122 mg/dL (70-99); Sodium Level 139 mmol/L (133-145)
[2024-07-09 08:28] VITALS: BP 132/71; PULSE 81; RESP 18; TEMP 37.2; O2SAT 97; BMI 24.1
[2024-07-09] MEDS: Docusate Sodium 100 MG Capsule 200 MG PO ×2 (08:35→21:23)
--- NOTE | 2024-07-09 09:38 | PN.URO_ITS ---
Subjective Subjective 64-year-old male status post a left partial nephrectomy for a solid renal mass suspicious for renal cell carcinoma, postop day #1 he looks okay does have a low-grade fever white blood count was elevated at 20,000 no clear source abdomen soft and benign, still has a Savage catheter in place will remove the catheter today he has been tolerating regular food has been passing gas but no bowel movements yet. I think we can Hep-Lock his IV fluids remove the Savage catheter he needs to ambulate and work on pulmonary toilet, probably hold off on discharge today will see what his white blood count is tomorrow make sure that he is not running more fevers ambulate walk around pulmonary toilet check blood count in the morning and we will see if he is ready for discharge either tomorrow or the next day. Objective Data Objective Data Vital Signs: Vital Signs Temp Pulse Resp BP Pulse Ox O2 Del Method 99.0 F 81 18 132/71 H 97 Room Air 07/09/24 08:28 07/09/24 08:28 07/09/24 08:28 07/09/24 08:28 07/09/24 08:28 07/09/24 08:28 Oxygen Delivery Method Room Air Weight: 73.8 kg Body Mass Index (BMI) 24.0 Intake & Output: Intake and Output for Last 24 Hours 07/07/24 07/08/24 07/09/24 23:59 23:59 23:59 Intake Total 2515.83 / 2515.83 1000 / 1000 Output Total 1830 / 1830 Balance 685.83 / 685.83 1000 / 1000 Lab / Micro Data 07/09/24 06:35 07/09/24 06:35 Labs: Laboratory Results - last 24 hr 07/09/24 06:35: WBC 20.2 H, RBC 4.07 L, Hgb 11.4 L, Hct 34.1 L, MCV 83.8, MCH 28.0, MCHC 33.4, RDW Std Deviation 41.8, RDW Coeff of Kelly 13.6, Plt Count 198, MPV 9.8, Immature Gran % (Auto) 0.600, Neut % (Auto) 89.0 H, Lymph % (Auto) 4.9 L, [place] % (Auto) 5.4, Eos % (Auto) 0.0, Baso % (Auto) 0.1, Absolute Neuts (auto) 18.0 H, Absolute Lymphs (auto) 0.98, Nucleated RBC % 0, Sodium 139, Potassium 4.0, Chloride 109 H, Carbon Dioxide 17.7 L, Anion Gap 12, BUN 12, Creatinine 0.94, Estim Creat Clear Calc 76.81, Est GFR (MDRD) Non-Af 90, BUN/Creatinine Ratio 12.6, Glucose 122 H, Calcium 9.1
[2024-07-09 12:02] VITALS: BMI 24.1
[2024-07-09 14:00] VITALS: BP 133/68; PULSE 83; RESP 18; TEMP 37.2; O2SAT 98
[2024-07-09] MEDS: 0.9% Saline Lock 10 ML Syringe IV ×2 (14:08→21:23)
[2024-07-09 17:46] VITALS: BMI 24.1
[2024-07-09 21:19] VITALS: BP 132/71; PULSE 72; RESP 16; TEMP 36.7; O2SAT 95
[2024-07-09] MEDS: amLODIPine 10 MG Tablet PO (21:23)
[2024-07-09] MEDS: Lisinopril 40 MG Tablet PO (21:23)
[2024-07-10 06:07] VITALS: BP 136/78; PULSE 71; RESP 20; TEMP 36.6; O2SAT 94
[2024-07-10 07:13] LABS: Absolute Lymphocyte Count 1.43 X10^3/uL (0.83-4.51); Basophil# 0.05 X10^3/uL; Basophil% 0.4 % (0-1); Eosinophil# 0.09 X10^3/uL; Eosinophils% 0.8 % (0-5); Hematocrit 32.1 % (40-54); Hemoglobin 10.9 g/dL (13.0-16.5); Lymphocyte # 1.43 X10^3/ul (0.83-4.51); Lymphocyte % 12.5 % (19-41); Mean Corpuscular Hgb 28.2 pg (27.0-32.0); Mean Corpuscular Volume 83.2 fL (80-94); Monocyte# 0.85 X10^3/uL; Monocyte% 7.4 % (0-10); NRBC Flagged by Analyzer 0 % (0-5); Neutrophil # 8.98 X10^3/uL (2.7-7.7); Neutrophil % 78.4 % (47-70); Platelet Count 183 K/mm3 (150-450); RBC Distribution Width CV 14.1 % (11.6-14.6); RBC Distribution Width SD 42.7 fl (35.1-43.9); Red Blood Count 3.86 M/mm3 (4.6-6.2); White Blood Count 11.5 K/mm3 (4.4-11.0)
[2024-07-10 07:28] VITALS: BP 125/78; PULSE 73; RESP 18; TEMP 36.8; O2SAT 97
[2024-07-10 07:32] VITALS: PULSE 80
[2024-07-10 07:33] LABS: Anion Gap 10 (5-15); BUN 12 mg/dL (4-19); Carbon Dioxide 21.4 mmol/L (21.0-32.0); Chloride 107 mmol/L (98-108); Creatinine, Serum 0.84 mg/dL (0.70-1.20); EST Glomerular Filtration Rate 97 (>60); Estimated Creatinine Clearance 85.95 ml/min (50-250); Glucose 107 mg/dL (70-99); Potassium 3.8 mmol/L (3.3-5.1); Sodium Level 139 mmol/L (133-145)
[2024-07-10] MEDS: Docusate Sodium 100 MG Capsule 200 MG PO (07:42)
--- NOTE | 2024-07-10 07:45 | PN.URO_ITS ---
Subjective Subjective Postoperative day #2 status post a left robotic partial nephrectomy white count is now normal abdomen soft and benign passing gas tolerating regular diet ambulating. Patient can go home today and follow-up in my office in 2 weeks for checkup Savage catheter is out. Objective Data Objective Data Vital Signs: Vital Signs Temp Pulse Resp BP Pulse Ox O2 Del Method 98.2 F 80 18 125/78 H 97 Room Air 07/10/24 07:28 07/10/24 07:32 07/10/24 07:28 07/10/24 07:28 07/10/24 07:28 07/10/24 07:28 Oxygen Delivery Method Room Air Weight: 73.8 kg Body Mass Index (BMI) 24.0 Intake & Output: Intake and Output for Last 24 Hours 07/08/24 07/09/24 07/10/24 23:59 23:59 23:59 Intake Total 2515.83 / 2515.83 2511.17 / 2511.17 Output Total 1830 / 1830 Balance 685.83 / 685.83 2511.17 / 2511.17 Lab / Micro Data 07/10/24 05:20 07/10/24 05:20 Labs: Laboratory Results - last 24 hr 07/09/24 06:35: Sodium 139, Potassium 4.0, Chloride 109 H, Carbon Dioxide 17.7 L , Anion Gap 12, BUN 12, Creatinine 0.94, Estim Creat Clear Calc 76.81, Est GFR (MDRD) Non-Af 90, BUN/Creatinine Ratio 12.6, Glucose 122 H, Calcium 9.1 07/10/24 05:20: WBC 11.5 H, RBC 3.86 L, Hgb 10.9 L, Hct 32.1 L, MCV 83.2, MCH 28.2, MCHC 34.0, RDW Std Deviation 42.7, RDW Coeff of Kelly 14.1, Plt Count 183, MPV 10.0, Immature Gran % (Auto) 0.500, Neut % (Auto) 78.4 H, Lymph % (Auto) 12.5 L, [place] % (Auto) 7.4, Eos % (Auto) 0.8, Baso % (Auto) 0.4, Absolute Neuts (auto) 9.0 H, Absolute Lymphs (auto) 1.43, Nucleated RBC % 0, Sodium 139, Potassium 3.8, Chloride 107, Carbon Dioxide 21.4, Anion Gap 10, BUN 12, Creatinine 0.84, Estim Creat Clear Calc 85.95, Est GFR (MDRD) Non-Af 97, BUN/Creatinine Ratio 14.0, Glucose 107 H, Calcium 9.0
--- NOTE | 2024-07-10 07:46 | PCM.DC.SUM ---
Providers Date of Admission: 07/08/24 Date of Discharge: 07/10/24 Primary Care Physician: Ivone Meadows, [employer] Reason For Visit: Lap Robotic Partial Nephrectomy Medications at Discharge Home Medications amlodipine 10 mg tablet (Norvasc) 10 mg PO QHS 06/24/24 lisinopril 40 mg tablet 40 mg PO QHS 06/24/24 docusate sodium 100 mg capsule (Colace) 100 mg PO BID #20 caps 07/08/24 oxycodone 5 mg tablet 5 mg PO Q6H PRN pain 3 days #14 tabs 07/08/24 Hospital Course Summary of Care Provided Minutes Spent on Discharge: 20 Hospital Course: Status post left robotic partial nephrectomy, per apparent kidney cancer. Home today follow-up in the office in 2 weeks Physical Exam Const alert and oriented x3 General Appearance: cooperative HEENT normocephalic, head/scalp atraumatic, EAC's normal and TM's normal bilaterally Eyes PERRL and EOMs intact bilaterally Pupil: sluggish Neck no lymphadenopathy, supple and no JVD General: trachea midline Lymph Lymphatic: no lymphadenopathy noted, lymphedema and lymphadenopathy Resp normal respiratory effort, normal air movement and clear to auscultation bilaterally Cardio regular rate, regular rhythm and peripheral pulses 2+ throughout GI soft to palpation, non-tender and non-distended Extremity normal capillary refill and no clubbing, cyanosis or edema General Extremity: no tenderness to palpation of joints or extremities Skin no rashes or lesions noted General Skin Exam: turgor normal Lesions: no lesions Rashes: no rashes Neuro CN's II-XII intact bilaterally Speech: speech normal Motor Exam: strength 5/5 throughout; Negative for general weakness Psych thought process normal, cooperative and affect normal Appearance: appropriate Weight / BMI Weight Weight: 73.8 kg Body Mass Index (BMI) 24.0 ABG / Lab / Microbiology Data 07/10/24 05:20 07/10/24 05:20 Laboratory: Laboratory Results - last 24 hr 07/09/24 06:35: Sodium 139, Potassium 4.0, Chloride 109 H, Carbon Dioxide 17.7 L, Anion Gap 12, BUN 12, Creatinine 0.94, Estim Creat Clear Calc 76.81, Est GFR (MDRD) Non-Af 90, BUN/Creatinine Ratio 12.6, Glucose 122 H, Calcium 9.1 07/10/24 05:20: WBC 11.5 H, RBC 3.86 L, Hgb 10.9 L, Hct 32.1 L, MCV 83.2, MCH 28.2, MCHC 34.0, RDW Std Deviation 42.7, RDW Coeff of Kelly 14.1, Plt Count 183, MPV 10.0, Immature Gran % (Auto) 0.500, Neut % (Auto) 78.4 H, Lymph % (Auto) 12.5 L, [place] % (Auto) 7.4, Eos % (Auto) 0.8, Baso % (Auto) 0.4, Absolute Neuts (auto) 9.0 H, Absolute Lymphs (auto) 1.43, Nucleated RBC % 0, Sodium 139, Potassium 3.8, Chloride 107, Carbon Dioxide 21.4, Anion Gap 10, BUN 12, Creatinine 0.84, Estim Creat Clear Calc 85.95, Est GFR (MDRD) Non-Af 97, BUN/Creatinine Ratio 14.0, Glucose 107 H, Calcium 9.0 D/C Instructions Discharge Diet: No restrictions Return to work on: 08/19/24August shower in (days): 1 Weight Bearing Status: Weight bearing as tolerated Additional Activity Instructions: No lifting for 6 weeks Call your doctor if you observe: Fever of 101 or Higher and Uncontrolled pain Suture Line Care: Avoid Pulling/Pushing and Avoid Pinching/Bending DC O2, CPAP, BIPAP Needs Home O2 Discharge instructions: No Please Follow Up With: Jesus Christian MD When: Call [phone] for an appointment Meaningful Use Info Meaningful Use Meaningful Use Diagnoses (Choose all that apply): None applicable Ischemic Stroke Statin Dosing Therapy Reference: STATIN DOSE THERAPY REFERENCE: * Patients > 75 years receive moderate or high dose statin therapy. * Patients 75 years or YOUNGER should receive HIGH intensity statin dose unless contraindicated. You will be required to document reason for non-treatment if statin daily dose does not meet guidelines. HIGH DOSE STATIN THERAPY DAILY Atorvastatin > than or = to 40 mg Rosuvastatin > than or = to 20 mg Amlodipine + Atorvastatin > than or = to 2.5/40 mg Ezetimibe + Simvastatin 10/80 mg Simvastatin 80mg Discharge Plan Admission Admit Date/Time: 07/08/24 11:00 Primary Reason for Your Visit: kidney mass, kidney cancer Attending Provider: Jesus Christian Primary Care Provider: Ivone Meadows [employer] Discharge Orders/Prescriptions Prescriptions: New oxycodone 5 mg tablet 5 mg PO Q6H PRN (Reason: pain) 3 Days Qty: 14 0RF docusate sodium [Colace] 100 mg capsule 100 mg PO BID Qty: 20 0RF Continued amlodipine [Norvasc] 10 mg tablet 10 mg PO QHS lisinopril 40 mg tablet 40 mg PO QHS Other Ambulatory Orders: CBC-Complete Blood Cnt No Diff (Routine) Timeframe: [id number] Facility: [facility] - Location: Laboratory Ordered By: Dr. Keaton Moffett Referrals / Follow Up: Jesus Christian MD [Med Staff - Active Staff] - Care Physician,No Primary [Non-Staff] - Disposition Discharge Orders: Discharge Patient (Routine); Ordered 07/10/24 Ordered By: Dr. Jesus Christian
[2024-07-10] MEDS: Ketorolac 15 MG/ML Vial IV (07:54)
[2024-07-10] MEDS: Acetaminophen 325 MG Tablet 650 MG PO ×2 (07:55→13:46)
[2024-07-10 08:28] VITALS: O2SAT 97
--- NOTE | 2024-07-10 10:18 | NURSING ---
downtime documentation 07/10/24 12am until 7am
[2024-07-10 12:26] VITALS: BP 118/71; PULSE 68; RESP 18; TEMP 36.7; O2SAT 97
[2024-07-10] MEDS: oxyCODONE 5 MG Tablet PO (12:31)
== END 2024-07-10 14:18 | disposition home or self-care (01) ==
LOC: SDC 11:31 → MS3 11:31
PROVIDERS: Admitting Provider Urology; PCP Nurse Practitioner Family; Referring Provider Urology; Visit Provider Urology
PROC: (CPT 50543; principal; 2024-07-08 07:40)
DX: C64.2 Malignant neoplasm of left kidney, except renal pelvis (principal); Z92.21 Personal history of antineoplastic chemotherapy; I10 Essential (primary) hypertension
CPT/HCPCS: 50543; S2900; 00862; 36415; 80048; 85025; 88307; 94668; 96361; 96374; 96375; 96376; 99221; A4216; G0378; J2405

== ENCOUNTER → 2024-11-17 | Outpatient (CLI) | payer OTHER, SELFPAY ==
--- NOTE | 2024-11-17 15:38 | RAD_ITS ---
PROCEDURE: CHEST PA AND LATERAL 11/17/2024 REASON FOR EXAM: KIDNEY CA TECHNIQUE: CHEST PA AND LATERAL COMPARISON: Chest x-ray of 12/09/2023. RAD/Chest PA and Lateral IMPRESSION: A foramina/herniation at the medial left hemidiaphragm, with somewhat increased mesenteric fat, is noted. Lungs appear clear of acute disease. No lung mass or nodularity is identified. No pleural effusion or pneumothorax is seen. The cardiomediastinal silhouette is within the normal range. Mild thoracic spine degenerative changes are noted. No evidence of acute cardiopulmonary disease. Reading Location: [place] [id number]
[2024-11-17 16:07] LABS: Hematocrit 39.7 % (40-54); Hemoglobin 13.1 g/dL (13.0-16.5); Mean Corp Hgb Conc 33.0 g/dL (32-36); Mean Corpuscular Volume 83.8 fL (80-94); Mean Platelet Vol. 9.6 fl (6.2-12.0); Platelet Count 221 K/mm3 (150-450); RBC Distribution Width CV 12.9 % (11.6-14.6); RBC Distribution Width SD 39.4 fl (35.1-43.9); Red Blood Count 4.74 M/mm3 (4.6-6.2); White Blood Count 8.0 K/mm3 (4.4-11.0)
[2024-11-17 16:52] LABS: Anion Gap 11 (5-15); BUN 14 mg/dL (4-19); BUN/Creat Ratio 16.3 RATIO (10-20); Calcium,Total 9.7 mg/dL (7.6-11.0); Carbon Dioxide 25.1 mmol/L (21.0-32.0); Chloride 100 mmol/L (98-108); Glucose 90 mg/dL (70-99); PSA,Total - Annual Screen 0.85 ng/mL (0.02-4.00); Potassium 3.8 mmol/L (3.3-5.1)
== END | disposition home or self-care (01) ==
PROVIDERS: PCP Nurse Practitioner Family; Referring Provider Urology; Visit Provider Urology
DX: C64.2 Malignant neoplasm of left kidney, except renal pelvis (principal); Z12.5 Encounter for screening for malignant neoplasm of prostate
CPT/HCPCS: 36415; 71046; 80048; 84153; 85027; G0103